=== PATIENT | male | born 1980 | race Caucasian/White ===

== ENCOUNTER 2017-06-04 09:54 | Observation (INO) | payer BC ==
[2017-06-04] MEDS ORDERED: Sodium Chloride 0.9% 10 ML Syringe FLUSH PRN (10:11)
[2017-06-04] MEDS ORDERED: Sodium Chloride 0.9% 1,000 ML IV ONE (10:11)
[2017-06-04] MEDS ORDERED: Ketorolac 15 MG/ML SDV IVPUSH ONE (10:11)
[2017-06-04] MEDS ORDERED: Morphine 4 MG/ML Syringe IVPUSH ONE (10:11)
[2017-06-04] MEDS ORDERED: Morphine 4 MG/ML Syringe IV ONE (11:00)
[2017-06-04 11:11] LABS: CHLORIDE,CL 103 mmol/L (98-107); SODIUM,NA 141 mmol/L (136-145)
--- NOTE | 2017-06-04 11:12 | EDM.PDOC ---
ED HPI GENERAL MEDICAL PROBLEM - General Chief Complaint: Syncope Stated Complaint: FALL Time Seen by Provider: 06/04/17 10:06 Source of Information: Reports: Patient History Limitations: Reports: No Limitations - History of Present Illness INITIAL COMMENTS - FREE TEXT/NARRATIVE: Patient reports falling after sitting on the toilet for several minutes. He did hit his head and shoulder. He has a large hematoma on his head and has left shoulder pain. He denies any recent illnesses. He does think he lost consciousness for a short period of time. He also has a history of seizures for which he takes Keppra. Sees neurology, but does not see a primary doctor. No smoking, drinking, or drug use. He denies chest pain, SOB, headache, nausea , vomiting, blood in urine or stool. No incontinence or constipation. Onset: Today, Sudden Location: Reports: Head, Upper Extremity, Left Quality: Reports: Ache Severity: Moderate Left Shoulder Pain Score (Numeric/FACES): 4 - Related Data Allergies Allergy/AdvReac Type Severity Reaction Status Date / Time No Known Allergies Allergy Verified 06/04/17 14:17 Home Meds: Home Meds levETIRAcetam [Levetiracetam] 1,500 mg PO BID 06/04/17 [History] Past Medical History HEENT History: Reports: Impaired Vision Cardiovascular History: Reports: None Neurological History: Reports: Seizure - Infectious Disease History Infectious Disease History: Reports: Chicken Pox - Past Surgical History HEENT Surgical History: Reports: Oral Surgery Other HEENT Surgeries/Procedures: [place] teeth removed Cardiovascular Surgical History: Reports: None Neurological Surgical History: Reports: None Social & Family History - Family History Family Medical History: Noncontributory - Tobacco Use Smoking Status *Q: Never Smoker Second Hand Smoke Exposure: No - Caffeine Use Caffeine Use: Reports: None - Recreational Drug Use Recreational Drug Use: No ED ROS GENERAL - Review of Systems Review Of Systems: See Below Constitutional: Reports: No Symptoms HEENT: Reports: No Symptoms Respiratory: Reports: No Symptoms Cardiovascular: Reports: No Symptoms Endocrine: Reports: No Symptoms GI/Abdominal: Reports: No Symptoms : Reports: No Symptoms Musculoskeletal: Reports: Shoulder Pain (left) Skin: Reports: No Symptoms Neurological: Reports: Syncope Psychiatric: Reports: No Symptoms Hematologic/Lymphatic: Reports: No Symptoms Immunologic: Reports: No Symptoms - Physical Exam Exam: See Below Exam Limited By: No Limitations General Appearance: Alert, WD/WN, No Apparent Distress Eye Exam: Bilateral Eye: EOMI, Normal Inspection, PERRL Ears: Normal TMs Head Exam: Scalp Ecchymosis, Scalp Hematoma Neck: Normal Inspection, Supple, Non-Tender, Full Range of Motion Respiratory/Chest: No Respiratory Distress, Lungs Clear, Normal Breath Sounds, No Accessory Muscle Use, Chest Non-Tender Cardiovascular: Normal Peripheral Pulses, Regular Rate, Rhythm, No Edema, No Gallop, No JVD, No Murmur, No Rub GI/Abdominal: Normal Bowel Sounds, Soft, Non-Tender, No Organomegaly, No Distention, No Abnormal Bruit, No Mass Neuro Exam (Abbreviated): Alert, Oriented, CN II-XII Intact, Normal Cognition, Normal Gait, Normal Reflexes, No Motor/Sensory Deficits Extremities: Limited Range of Motion (left shoulder does have limited ROM, pain , swelling to anterior shoulder) Psychiatric: Normal Affect, Normal Mood Skin Exam: Warm, Dry, Intact, Normal Color, No Rash ED PROCEDURES - Joint Reduction Site: Shoulder (L) Sedation: Other Pre-procedure NV status: Normal Post-procedure NV status: Normal Technique: Traction/Counter Traction Number of Attempts: 2 Post-Reduction Imaging: Completely Reduced Joint Reduction Complications: No EKG INTERPRETATION EKG Date: 06/04/17 Time: 11:42 Rhythm: Other (sinus tach, rate 102) [place]: Normal P-Wave: Present QRS: Normal ST-T: Normal QT: Normal Comparison: NA - No Prior EKG EKG Interpretation Comments: sinus tachycardia non specific T-wave abnormality Course - Orders/Labs/Meds Orders: Active Orders 24 hr Category Date Time Status Patient Status [ADT] Routine ADT 06/04/17 12:49 Active EKG Documentation Completion [RC] ROUTINE Care 06/04/17 10:12 Active Chest 2V [CR] Stat Exams 06/04/17 10:12 Taken Head wo Cont [CT] Stat Exams 06/04/17 10:07 Taken Shoulder Comp Lt [CR] Stat Exams 06/04/17 10:07 Taken CULTURE BLOOD [BC] Stat Lab 06/04/17 12:13 Results CULTURE BLOOD [BC] Stat Lab 06/04/17 12:26 Results URINALYSIS W/MICROSCOPIC [UA W/MICROSCOPIC] [URIN] Stat Lab 06/04/17 11:01 Ordered Sodium Chloride 0.9% [Saline Flush] Med 06/04/17 10:11 Active 10 ml FLUSH ASDIRECTED PRN Blood Culture x2 Reflex Set [OM.PC] Stat Oth 06/04/17 11:48 Ordered Saline Lock Insert [OM.PC] Routine Oth 06/04/17 10:11 Ordered Medication Orders Sodium Chloride (Normal Saline) 500 mls @ 100 mls/hr IV ASDIRECTED SCOTT Sodium Chloride (Normal Saline) 1,000 mls @ 100 mls/hr IV ASDIRECTED SCOTT Last Admin: 06/04/17 13:25 Dose: 100 mls/hr Sodium Chloride (Saline Flush) 10 ml FLUSH ASDIRECTED PRN PRN Reason: Keep Vein Open Labs: Laboratory Tests 06/04/17 06/04/17 06/04/17 Range/Units 10:40 10:40 10:40 WBC 28.7 H* (4.0-10.0) x10^3/uL RBC 4.71 (4.5-6.0) x10^6/uL Hgb 15.1 (14.0-18.0) g/dL Hct 42.5 (40.0-52.0) % MCV 90.2 (78.0-93.0) fL MCH 32.1 H (26.0-32.0) pg MCHC 35.5 (32.0-36.0) g/dL RDW Coeff of Curry 12.1 (10.0-15.0) % Plt Count 296 (130-400) x10^3/uL Add Manual Diff Yes Neutrophils % (Manual) 88 H (50-80) % Band Neutrophils % 3 (0-6) % Lymphocytes % (Manual) 4 L (25-50) % Monocytes % (Manual) 5 (2-11) % Platelet Estimate Adequate PT 10.4 (9.8-11.8) SEC INR 1.0 L (2.0-3.5) Sodium 141 (136-145) mmol/L Potassium 3.2 L (3.5-5.1) mmol/L Chloride 103 (98-107) mmol/L Carbon Dioxide 24 (21-32) mmol/L Anion Gap 17.2 BUN 13 (7-18) mg/dL Creatinine 1.3 (0.70-1.30) mg/dL Est Cr Clr Drug Dosing TNP Estimated GFR (MDRD) > 60 Glucose 124 H (74-106) mg/dL Lactic Acid (0.4-2.0) mmol/L Calcium 8.7 (8.5-10.1) mg/dL Corrected Calcium 8.46 L (8.5-10.1) mg/dL Total Bilirubin 0.3 (0.2-1.0) mg/dL AST 18 (15-37) U/L ALT 25 (16-63) U/L Alkaline Phosphatase 67 (46-116) U/L Creatine Kinase (39-308) U/L Troponin I < 0.017 (<=0.056) ng/mL C-Reactive Protein < 0.2 (<=0.9) mg/dL Total Protein 7.5 (6.4-8.2) g/dL Albumin 4.3 (3.4-5.0) g/dL Globulin 3.2 Albumin/Globulin Ratio 1.34 06/04/17 06/04/17 Range/Units 10:40 10:40 WBC (4.0-10.0) x10^3/uL RBC (4.5-6.0) x10^6/uL Hgb (14.0-18.0) g/dL Hct (40.0-52.0) % MCV (78.0-93.0) fL MCH (26.0-32.0) pg MCHC (32.0-36.0) g/dL RDW Coeff of Curry (10.0-15.0) % Plt Count (130-400) x10^3/uL Add Manual Diff Neutrophils % (Manual) (50-80) % Band Neutrophils % (0-6) % Lymphocytes % (Manual) (25-50) % Monocytes % (Manual) (2-11) % Platelet Estimate PT (9.8-11.8) SEC INR (2.0-3.5) Sodium (136-145) mmol/L Potassium (3.5-5.1) mmol/L Chloride (98-107) mmol/L Carbon Dioxide (21-32) mmol/L Anion Gap BUN (7-18) mg/dL Creatinine (0.70-1.30) mg/dL Est Cr Clr Drug Dosing Estimated GFR (MDRD) Glucose (74-106) mg/dL Lactic Acid 3.7 H* (0.4-2.0) mmol/L Calcium (8.5-10.1) mg/dL Corrected Calcium (8.5-10.1) mg/dL Total Bilirubin (0.2-1.0) mg/dL AST (15-37) U/L ALT (16-63) U/L Alkaline Phosphatase (46-116) U/L Creatine Kinase 377 H* (39-308) U/L Troponin I (<=0.056) ng/mL C-Reactive Protein (<=0.9) mg/dL Total Protein (6.4-8.2) g/dL Albumin (3.4-5.0) g/dL Globulin Albumin/Globulin Ratio Meds: Medications Generic Name Dose Route Start Last Admin Trade Name Freq PRN Reason Stop Dose Admin Sodium Chloride 500 mls @ 100 mls/hr 06/04/17 13:15 Normal Saline IV ASDIRECTED SCOTT Sodium Chloride 1,000 mls @ 100 mls/hr 06/04/17 13:30 06/04/17 13:25 Normal Saline IV 100 mls/hr ASDIRECTED SCOTT Administration Sodium Chloride 10 ml 06/04/17 10:11 Saline Flush FLUSH ASDIRECTED PRN Keep Vein Open Discontinued Medications Generic Name Dose Route Start Last Admin Trade Name Freq PRN Reason Stop Dose Admin Azithromycin Confirm 06/04/17 13:33 Zithromax Administered 06/04/17 13:34 Dose 500 mg .ROUTE .STK-MED ONE Ceftriaxone Sodium 2 gm 06/04/17 11:46 06/04/17 13:05 Rocephin IVPUSH 06/04/17 11:47 2 gm ONETIME ONE Administration Cyclobenzaprine HCl 10 mg 06/04/17 11:25 06/04/17 13:10 Flexeril PO 06/04/17 11:26 10 mg ONETIME ONE Administration Hydromorphone HCl 1 mg 06/04/17 12:49 06/04/17 13:12 Dilaudid IVPUSH 06/04/17 12:50 1 mg ONETIME ONE Administration Hydromorphone HCl 1 mg 06/04/17 14:04 06/04/17 14:21 Dilaudid IVPUSH 06/04/17 14:05 1 mg ONETIME ONE Administration Sodium Chloride 1,000 mls @ 999 mls/hr 06/04/17 10:11 06/04/17 10:40 Normal Saline IV 06/04/17 11:11 999 mls/hr ONETIME ONE Administration Azithromycin 500 mg/ Sodium 250 mls @ 250 mls/hr 06/04/17 11:46 Chloride IV 06/04/17 12:45 ONETIME ONE Azithromycin 500 mg/ Sodium 250 mls @ 250 mls/hr 06/04/17 13:24 Chloride IV 06/04/17 14:23 ONETIME ONE Ketorolac Tromethamine 15 mg 06/04/17 10:11 06/04/17 11:26 Toradol IVPUSH 06/04/17 10:12 15 mg ONETIME ONE Administration Lorazepam 0.5 mg 06/04/17 12:50 06/04/17 13:15 Ativan IVPUSH 06/04/17 12:51 0.5 mg ONETIME ONE Administration Morphine Sulfate 4 mg 06/04/17 10:11 06/04/17 10:45 Morphine IVPUSH 06/04/17 10:12 4 mg ONETIME ONE Administration Morphine Sulfate 4 mg 06/04/17 11:00 06/04/17 11:25 Morphine IV 06/04/17 11:01 Not Given ONETIME ONE - Re-Assessments/Exams Free Text/Narrative Re-Assessment/Exam: 06/04/17 12:59 CT head shows no acute bleeding, Chest x-ray normal, should x-ray shows anterior glenerohumeral head dislocation, no fractures. Departure - Departure Time of Disposition: 15:03 Disposition: Refer to Observation Condition: Good Clinical Impression: Dehydration Leukocytosis, unspecified Qualifiers: Leukocytosis type: unspecified Qualified Code(s): D72.829 - Elevated white blood cell count, unspecified - Discharge Information ED Communication - Discussed Case With (1) Discussed Case With (1): Other (Dr. Reyez consulted and she recommended observation admission.) - Problem List & Annotations (1) Dehydration SNOMED Code(s): 45740283 Code(s): E86.0 - DEHYDRATION Status: Acute Priority: Medium Current Visit: Yes Onset Date: ~01/15/17 Annotation/Comment:: 1. hydration 2. repeat metabolic panel in am 3. repeat lactic acid (2) Leukocytosis, unspecified SNOMED Code(s): 195800068, 126427587 Code(s): D72.829 - ELEVATED WHITE BLOOD CELL COUNT, UNSPECIFIED Status: Acute Priority: Medium Current Visit: Yes Onset Date: 06/04/17 Annotation/Comment:: Repeat lactic acid in 6 hours Repeat CBC in AM Urinalysis to determine any urinary causes rocephin and azithromycin for antibiotics Qualifiers: Leukocytosis type: unspecified Qualified Code(s): D72.829 - Elevated white blood cell count, unspecified - Problem List Review Problem List Initiated/Reviewed/Updated: Yes - My Orders Last 24 Hours: My Active Orders 06/04/17 10:07 Head wo Cont [CT] Stat Shoulder Comp Lt [CR] Stat 06/04/17 10:11 Sodium Chloride 0.9% [Saline Flush] 10 ml FLUSH ASDIRECTED PRN Saline Lock Insert [OM.PC] Routine 06/04/17 10:12 EKG Documentation Completion [RC] ROUTINE Chest 2V [CR] Stat 06/04/17 11:01 URINALYSIS W/MICROSCOPIC [UA W/MICROSCOPIC] [URIN] Stat 06/04/17 11:48 Blood Culture x2 Reflex Set [OM.PC] Stat 06/04/17 12:13 CULTURE BLOOD [BC] Stat 06/04/17 12:26 CULTURE BLOOD [BC] Stat 06/04/17 12:49 Patient Status [ADT] Routine - Assessment/Plan Last 24 Hours: My Active Orders 06/04/17 10:07 Head wo Cont [CT] Stat Shoulder Comp Lt [CR] Stat 06/04/17 10:11 Sodium Chloride 0.9% [Saline Flush] 10 ml FLUSH ASDIRECTED PRN Saline Lock Insert [OM.PC] Routine 06/04/17 10:12 EKG Documentation Completion [RC] ROUTINE Chest 2V [CR] Stat 06/04/17 11:01 URINALYSIS W/MICROSCOPIC [UA W/MICROSCOPIC] [URIN] Stat 06/04/17 11:48 Blood Culture x2 Reflex Set [OM.PC] Stat 06/04/17 12:13 CULTURE BLOOD [BC] Stat 06/04/17 12:26 CULTURE BLOOD [BC] Stat 06/04/17 12:49 Patient Status [ADT] Routine
[2017-06-04] MEDS ORDERED: Cyclobenzaprine 10 MG Tab PO ONE (11:25)
[2017-06-04] MEDS ORDERED: Azithromycin 500 MG in Sodium Chloride 0.9% 250 ML IV ONE ×3 (11:46→13:55)
[2017-06-04] MEDS ORDERED: cefTRIAXone 2 GM Vial IVPUSH ONE (11:46)
[2017-06-04] MEDS ORDERED: HYDROmorphone 1 MG/ML Syringe IVPUSH ONE ×2 (12:49→14:04)
[2017-06-04] MEDS ORDERED: LORazepam 2 MG/ML SDV IVPUSH ONE (12:50)
[2017-06-04] MEDS ORDERED: Sodium Chloride 0.9% 500 ML IV SCH (13:15)
[2017-06-04] MEDS ORDERED: Sodium Chloride 0.9% 1,000 ML IV SCH (13:30)
[2017-06-04] MEDS ORDERED: Azithromycin 500 MG Vial ONE (13:33)
[2017-06-04] MEDS ORDERED: Ondansetron 4 MG Tab.DIS PO PRN (17:40)
[2017-06-04] MEDS ORDERED: Ketorolac 15 MG/ML SDV IVPUSH PRN (17:40)
[2017-06-04] MEDS ORDERED: Acetaminophen/HYDROcodone 325-5 MG Tab PO PRN (17:40)
[2017-06-04] MEDS ORDERED: Lactated Ringers 1,000 ML IV SCH (21:15)
--- NOTE | 2017-06-04 21:22 | PCM.PN ---
- General Info Date of Service: 06/04/17 Admission Dx/Problem (Free Text): Pt. was admitted with a syncopal episode vs. seizure, dehydration, rhabdomyolysis, and leukocytosis earlier today by Farhat Santana. Pt. was on the toliet at the onset of these symptoms and it is possible that the pt. may have had a syncopal episode as well. Pt. did strike his head. CT of his brain was negative. Pt. also dislocated his shoulder anteriorly during the fall which was reduced. Pt. has been chilled several times during the day. His urine is negative for leukocytes and nitrates. His initial chest x-ray of his chest is negative as well. Pt. denies any rashes or cellulitis. He denies any headache, neck stiffness, N/V/D or abdominal pain. Functional Status: Reports: Pain Controlled - Review of Systems General: Reports: No Symptoms HEENT: Reports: Other (superficial head pain/scalp contusions) Pulmonary: Reports: No Symptoms Cardiovascular: Reports: No Symptoms Gastrointestinal: Reports: No Symptoms Genitourinary: Reports: No Symptoms Musculoskeletal: Reports: Shoulder Pain Skin: Reports: No Symptoms Neurological: Reports: No Symptoms, Seizure (See HPI), Syncope (see HPI). Denies: Confusion, Dizziness, Numbness, Trouble Speaking, Difficulty Walking, Weakness, Change in Speech, Gait Disturbance Psychiatric: Reports: No Symptoms - Patient Data Vitals - Most Recent: Last Vital Signs Temp 37.5 C 06/04/17 17:40 Pulse 111 H 06/04/17 17:40 Resp 16 06/04/17 17:40 BP 129/73 06/04/17 17:40 Pulse Ox 94 L 06/04/17 17:40 Weight - Most Recent: 94.529 kg I&O - Last 24 Hours: Intake & Output 06/04/17 06/04/17 06/04/17 06:59 14:59 22:59 Intake Total 1085 Balance 1085 Lab Results Last 24 Hours: Laboratory Results - last 24 hr 06/04/17 06/04/17 06/04/17 Range/Units 10:40 10:40 10:40 WBC 28.7 H* (4.0-10.0) x10^3/uL RBC 4.71 (4.5-6.0) x10^6/uL Hgb 15.1 (14.0-18.0) g/dL Hct 42.5 (40.0-52.0) % MCV 90.2 (78.0-93.0) fL MCH 32.1 H (26.0-32.0) pg MCHC 35.5 (32.0-36.0) g/dL RDW Coeff of Curry 12.1 (10.0-15.0) % Plt Count 296 (130-400) x10^3/uL Add Manual Diff Yes Neutrophils % (Manual) 88 H (50-80) % Band Neutrophils % 3 (0-6) % Lymphocytes % (Manual) 4 L (25-50) % Monocytes % (Manual) 5 (2-11) % Platelet Estimate Adequate PT 10.4 (9.8-11.8) SEC INR 1.0 L (2.0-3.5) Sodium 141 (136-145) mmol/L Potassium 3.2 L (3.5-5.1) mmol/L Chloride 103 (98-107) mmol/L Carbon Dioxide 24 (21-32) mmol/L Anion Gap 17.2 BUN 13 (7-18) mg/dL Creatinine 1.3 (0.70-1.30) mg/dL Est Cr Clr Drug Dosing TNP Estimated GFR (MDRD) > 60 Glucose 124 H (74-106) mg/dL Lactic Acid (0.4-2.0) mmol/L Calcium 8.7 (8.5-10.1) mg/dL Corrected Calcium 8.46 L (8.5-10.1) mg/dL Total Bilirubin 0.3 (0.2-1.0) mg/dL AST 18 (15-37) U/L ALT 25 (16-63) U/L Alkaline Phosphatase 67 (46-116) U/L Creatine Kinase (39-308) U/L Troponin I < 0.017 (<=0.056) ng/mL C-Reactive Protein < 0.2 (<=0.9) mg/dL Total Protein 7.5 (6.4-8.2) g/dL Albumin 4.3 (3.4-5.0) g/dL Globulin 3.2 Albumin/Globulin Ratio 1.34 Urine Color (YELLOW) Urine Appearance (CLEAR) Urine pH (5.0-8.0) Ur Specific [place] Urine Protein (NEGATIVE) mg/dL Urine Glucose (UA) (NEGATIVE) mg/dL Urine Ketones (NEGATIVE) mg/dL Urine Occult Blood (NEGATIVE) Urine Nitrite (NEGATIVE) Urine Bilirubin (NEGATIVE) Urine Urobilinogen (0.2) EU/dL Ur Leukocyte Esterase (NEGATIVE) Urine RBC (NOT SEEN) /HPF Urine WBC (NOT SEEN) /HPF Ur Squamous Epith Cells (NEGATIVE) /HPF Uric Acid Crystals (NEGATIVE) /HPF Amorphous Sediment Urine Bacteria (NEGATIVE) /HPF Urine Mucus (NEGATIVE) /LPF 06/04/17 06/04/17 06/04/17 Range/Units 10:40 10:40 18:00 WBC (4.0-10.0) x10^3/uL RBC (4.5-6.0) x10^6/uL Hgb (14.0-18.0) g/dL Hct (40.0-52.0) % MCV (78.0-93.0) fL MCH (26.0-32.0) pg MCHC (32.0-36.0) g/dL RDW Coeff of Curry (10.0-15.0) % Plt Count (130-400) x10^3/uL Add Manual Diff Neutrophils % (Manual) (50-80) % Band Neutrophils % (0-6) % Lymphocytes % (Manual) (25-50) % Monocytes % (Manual) (2-11) % Platelet Estimate PT (9.8-11.8) SEC INR (2.0-3.5) Sodium (136-145) mmol/L Potassium (3.5-5.1) mmol/L Chloride (98-107) mmol/L Carbon Dioxide (21-32) mmol/L Anion Gap BUN (7-18) mg/dL Creatinine (0.70-1.30) mg/dL Est Cr Clr Drug Dosing Estimated GFR (MDRD) Glucose (74-106) mg/dL Lactic Acid 3.7 H* (0.4-2.0) mmol/L Calcium (8.5-10.1) mg/dL Corrected Calcium (8.5-10.1) mg/dL Total Bilirubin (0.2-1.0) mg/dL AST (15-37) U/L ALT (16-63) U/L Alkaline Phosphatase (46-116) U/L Creatine Kinase 377 H* (39-308) U/L Troponin I (<=0.056) ng/mL C-Reactive Protein (<=0.9) mg/dL Total Protein (6.4-8.2) g/dL Albumin (3.4-5.0) g/dL Globulin Albumin/Globulin Ratio Urine Color Yellow (YELLOW) Urine Appearance Slightly cloudy H (CLEAR) Urine pH 5.5 (5.0-8.0) Ur Specific [place] >=1.030 Urine Protein Trace H (NEGATIVE) mg/dL Urine Glucose (UA) Negative (NEGATIVE) mg/dL Urine Ketones Trace H (NEGATIVE) mg/dL Urine Occult Blood Negative (NEGATIVE) Urine Nitrite Negative (NEGATIVE) Urine Bilirubin Negative (NEGATIVE) Urine Urobilinogen 0.2 (0.2) EU/dL Ur Leukocyte Esterase Negative (NEGATIVE) Urine RBC 0-5 (NOT SEEN) /HPF Urine WBC 0-5 (NOT SEEN) /HPF Ur Squamous Epith Cells Few H (NEGATIVE) /HPF Uric Acid Crystals Moderate H (NEGATIVE) /HPF Amorphous Sediment Few Urine Bacteria Moderate H (NEGATIVE) /HPF Urine Mucus Moderate H (NEGATIVE) /LPF [place] Results Last 24 Hours: Microbiology 06/04/17 12:26 Anaerobic Blood Culture - Final Blood - Venous - Lab Draw 06/04/17 12:13 Anaerobic Blood Culture - Final Blood - Venous Med Orders - Current: Current Medications Hydrocodone Bitart/Acetaminophen ([place] 325-5 Mg) 1 tab PO Q4H PRN PRN Reason: Pain (moderate 4-6) Lactated Ringer's (Ringers, Lactated) 1,000 mls @ 500 mls/hr IV ASDIRECTED SCOTT Lactated Ringer's (Ringers, Lactated) 1,000 mls @ 200 mls/hr IV ASDIRECTED SCOTT Ketorolac Tromethamine (Toradol) 15 mg IVPUSH Q6H PRN PRN Reason: Pain (moderate 4-6) Ondansetron HCl (Zofran Odt) 4 mg PO Q4H PRN PRN Reason: nausea, able to take PO Sodium Chloride (Saline Flush) 10 ml FLUSH ASDIRECTED PRN PRN Reason: Keep Vein Open Discontinued Medications Azithromycin (Zithromax) Confirm Administered Dose 500 mg .ROUTE .STK-MED ONE Stop: 06/04/17 13:34 Last Admin: 06/04/17 17:46 Dose: Not Given Ceftriaxone Sodium (Rocephin) 2 gm IVPUSH ONETIME ONE Stop: 06/04/17 11:47 Last Admin: 06/04/17 13:05 Dose: 2 gm Cyclobenzaprine HCl (Flexeril) 10 mg PO ONETIME ONE Stop: 06/04/17 11:26 Last Admin: 06/04/17 13:10 Dose: 10 mg Hydromorphone HCl (Dilaudid) 1 mg IVPUSH ONETIME ONE Stop: 06/04/17 12:50 Last Admin: 06/04/17 13:12 Dose: 1 mg Hydromorphone HCl (Dilaudid) 1 mg IVPUSH ONETIME ONE Stop: 06/04/17 14:05 Last Admin: 06/04/17 14:21 Dose: 1 mg Sodium Chloride (Normal Saline) 1,000 mls @ 999 mls/hr IV ONETIME ONE Stop: 06/04/17 11:11 Last Admin: 06/04/17 10:40 Dose: 999 mls/hr Azithromycin 500 mg/ Sodium (Chloride) 250 mls @ 250 mls/hr IV ONETIME ONE Stop: 06/04/17 12:45 Last Admin: 06/04/17 17:47 Dose: Not Given Sodium Chloride (Normal Saline) 1,000 mls @ 100 mls/hr IV ASDIRECTED [facility] Last Admin: 06/04/17 13:25 Dose: 100 mls/hr Azithromycin 500 mg/ Sodium (Chloride) 250 mls @ 250 mls/hr IV ONETIME ONE Stop: 06/04/17 14:54 Last Admin: 06/04/17 13:55 Dose: 250 mls/hr Ketorolac Tromethamine (Toradol) 15 mg IVPUSH ONETIME ONE Stop: 06/04/17 10:12 Last Admin: 06/04/17 11:26 Dose: 15 mg Lorazepam (Ativan) 0.5 mg IVPUSH ONETIME ONE Stop: 06/04/17 12:51 Last Admin: 06/04/17 13:15 Dose: 0.5 mg Morphine Sulfate (Morphine) 4 mg IVPUSH ONETIME ONE Stop: 06/04/17 10:12 Last Admin: 06/04/17 10:45 Dose: 4 mg Morphine Sulfate (Morphine) 4 mg IV ONETIME ONE Stop: 06/04/17 11:01 Last Admin: 06/04/17 11:25 Dose: Not Given - Exam General: Alert, Oriented HEENT: Pupils Equal, Pupils Reactive, EOMI, Other (mouth is somewhat dry) Neck: Supple Lungs: Clear to Auscultation, Normal Respiratory Effort, Decreased Breath Sounds Cardiovascular: Regular Rate, Regular Rhythm GI/Abdominal Exam: Normal Bowel Sounds, Soft, Non-Tender, No Organomegaly, No Distention, No Abnormal Bruit, No Mass, Pelvis Stable (Male) Exam: Deferred Back Exam: Normal Inspection, Full Range of Motion Extremities: Normal Range of Motion, Non-Tender, No Pedal Edema, Normal Capillary Refill Peripheral Pulses: 4+: Radial (L), Radial (R) Skin: Warm, Dry, Intact Wound/Incisions: Healing Well Neurological: No New Focal Deficit Psy/Mental Status: Alert, Normal Affect, Normal Mood - Problem List Review Problem List Initiated/Reviewed/Updated: Yes - My Orders Last 24 Hours: My Active Orders 06/04/17 20:51 LACTIC ACID [CHEM] Stat TROPONIN I [CHEM] Stat 06/04/17 21:15 Lactated Ringers [Ringers, Lactated] 1,000 ml IV ASDIRECTED Lactated Ringers [Ringers, Lactated] 1,000 ml IV ASDIRECTED - Assessment Assessment:: Syncope vs. seizure Dehydration Fall with closed head injury and L shoulder dislocation Elevated lactic acid and leukocytosis Rhabdomyolysis - Plan Plan:: will repeat his troponin and lactic acid now. We will tread these in the morning and will add chemisty and repeat CBC as well. Will also repeat his CXR in the morning as well. He is dehydrated and in rhadomyolysis. Will give him a liter of LR over 2 hours , then increase his rate to 200ml an hour from 100ml/hr. I will also change him to LR from normal saline. Discharge will be based on laboratory finding in the morning. Pt. will need to establish with a PCP and will need hospital follow-up, particularly since he dislocated his shoulder. He should see his neurologist as well.
[2017-06-04] MEDS: levETIRAcetam 500 MG Tab PO SCH (22:36)
[2017-06-04] MEDS: Lactated Ringers 1,000 ML IV SCH (23:40)
[2017-06-05] MEDS: Lactated Ringers 1,000 ML IV SCH (04:44)
[2017-06-05 08:11] LABS: CHLORIDE,CL 105 mmol/L (98-107); SODIUM,NA 137 mmol/L (136-145)
[2017-06-05] MEDS: levETIRAcetam 500 MG Tab PO SCH ×2 (08:12→21:27)
[2017-06-05] MEDS ORDERED: Sodium Chloride 0.9% 1,000 ML IV ONE (11:04)
[2017-06-05] MEDS ORDERED: cefTRIAXone 2 GM Vial IVPUSH SCH (12:00)
[2017-06-05] MEDS ORDERED: Azithromycin 500 MG in Sodium Chloride 0.9% 250 ML IV SCH (12:00)
--- NOTE | 2017-06-05 12:14 | PCM.PN ---
- General Info Date of Service: 06/05/17 Subjective Update: Pt. is feeling better today. He was hydrated with lactated ringers overnight. He states that he is feeling much improved. His chest x-ray was repeated this morning which did show some linear atelectasis which was not present yesterday. Functional Status: Reports: Pain Controlled - Review of Systems General: Reports: No Symptoms HEENT: Reports: No Symptoms Pulmonary: Reports: No Symptoms Cardiovascular: Reports: No Symptoms Gastrointestinal: Reports: No Symptoms. Denies: Abdominal Pain, Diarrhea, Nausea Genitourinary: Reports: No Symptoms Musculoskeletal: Reports: No Symptoms Skin: Reports: No Symptoms Neurological: Reports: No Symptoms. Denies: Paresthesia, Seizure, Trouble Speaking, Difficulty Walking, Change in Speech, Gait Disturbance Psychiatric: Reports: No Symptoms - Patient Data Vitals - Most Recent: Last Vital Signs Temp 37.2 C 06/05/17 10:00 Pulse 110 H 06/05/17 10:00 Resp 16 06/05/17 10:00 BP 145/79 H 06/05/17 10:00 Pulse Ox 97 06/05/17 10:00 Weight - Most Recent: 94.529 kg I&O - Last 24 Hours: Intake & Output 06/04/17 06/05/17 06/05/17 22:59 06:59 14:59 Intake Total 1085 4445 1050 Output Total 950 1075 Balance 1085 3495 -25 Lab Results Last 24 Hours: Laboratory Results - last 24 hr 06/04/17 06/04/17 06/04/17 Range/Units 10:40 10:40 18:00 WBC (4.0-10.0) x10^3/uL RBC (4.5-6.0) x10^6/uL Hgb (14.0-18.0) g/dL Hct (40.0-52.0) % MCV (78.0-93.0) fL MCH (26.0-32.0) pg MCHC (32.0-36.0) g/dL RDW Coeff of [place] (10.0-15.0) % Plt Count (130-400) x10^3/uL Neut % (Auto) (50.0-80.0) % Lymph % (Auto) (25.0-50.0) % [place] % (Auto) (2.0-11.0) % Eos % (Auto) (0.0-4.0) % Baso % (Auto) (0.2-1.2) % Sodium (136-145) mmol/L Potassium (3.5-5.1) mmol/L Chloride (98-107) mmol/L Carbon Dioxide (21-32) mmol/L Anion Gap (10-20) mmol/L BUN (7-18) mg/dL Creatinine (0.70-1.30) mg/dL Est Cr Clr Drug Dosing mL/min Estimated GFR (MDRD) Glucose (74-106) mg/dL Lactic Acid 3.7 H* (0.4-2.0) mmol/L Calcium (8.5-10.1) mg/dL Creatine Kinase 377 H* (39-308) U/L Troponin I (<=0.056) ng/mL C-Reactive Protein (<=0.9) mg/dL Urine Color Yellow (YELLOW) Urine Appearance Slightly cloudy H (CLEAR) Urine pH 5.5 (5.0-8.0) Ur Specific [place] >=1.030 Urine Protein Trace H (NEGATIVE) mg/dL Urine Glucose (UA) Negative (NEGATIVE) mg/dL Urine Ketones Trace H (NEGATIVE) mg/dL Urine Occult Blood Negative (NEGATIVE) Urine Nitrite Negative (NEGATIVE) Urine Bilirubin Negative (NEGATIVE) Urine Urobilinogen 0.2 (0.2) EU/dL Ur Leukocyte Esterase Negative (NEGATIVE) Urine RBC 0-5 (NOT SEEN) /HPF Urine WBC 0-5 (NOT SEEN) /HPF Ur Squamous Epith Cells Few H (NEGATIVE) /HPF Uric Acid Crystals Moderate H (NEGATIVE) /HPF Amorphous Sediment Few Urine Bacteria Moderate H (NEGATIVE) /HPF Urine Mucus Moderate H (NEGATIVE) /LPF 06/04/17 06/04/17 06/05/17 Range/Units 21:10 21:10 07:05 WBC 10.8 H (4.0-10.0) x10^3/uL RBC 3.74 L (4.5-6.0) x10^6/uL Hgb 11.9 L D (14.0-18.0) g/dL Hct 34.7 L (40.0-52.0) % MCV 92.8 (78.0-93.0) fL MCH 31.8 (26.0-32.0) pg MCHC 34.3 (32.0-36.0) g/dL RDW Coeff of [place] 12.2 (10.0-15.0) % Plt Count 202 D (130-400) x10^3/uL Neut % (Auto) 73.4 (50.0-80.0) % Lymph % (Auto) 18.4 L (25.0-50.0) % [place] % (Auto) 7.4 (2.0-11.0) % Eos % (Auto) 0.5 (0.0-4.0) % Baso % (Auto) 0.3 (0.2-1.2) % Sodium (136-145) mmol/L Potassium (3.5-5.1) mmol/L Chloride (98-107) mmol/L Carbon Dioxide (21-32) mmol/L Anion Gap (10-20) mmol/L BUN (7-18) mg/dL Creatinine (0.70-1.30) mg/dL Est Cr Clr Drug Dosing mL/min Estimated GFR (MDRD) Glucose (74-106) mg/dL Lactic Acid 2.1 H* (0.4-2.0) mmol/L Calcium (8.5-10.1) mg/dL Creatine Kinase (39-308) U/L Troponin I < 0.017 (<=0.056) ng/mL C-Reactive Protein (<=0.9) mg/dL Urine Color (YELLOW) Urine Appearance (CLEAR) Urine pH (5.0-8.0) Ur Specific [place] Urine Protein (NEGATIVE) mg/dL Urine Glucose (UA) (NEGATIVE) mg/dL Urine Ketones (NEGATIVE) mg/dL Urine Occult Blood (NEGATIVE) Urine Nitrite (NEGATIVE) Urine Bilirubin (NEGATIVE) Urine Urobilinogen (0.2) EU/dL Ur Leukocyte Esterase (NEGATIVE) Urine RBC (NOT SEEN) /HPF Urine WBC (NOT SEEN) /HPF Ur Squamous Epith Cells (NEGATIVE) /HPF Uric Acid Crystals (NEGATIVE) /HPF Amorphous Sediment Urine Bacteria (NEGATIVE) /HPF Urine Mucus (NEGATIVE) /LPF 06/05/17 06/05/17 Range/Units 07:05 07:05 WBC (4.0-10.0) x10^3/uL RBC (4.5-6.0) x10^6/uL Hgb (14.0-18.0) g/dL Hct (40.0-52.0) % MCV (78.0-93.0) fL MCH (26.0-32.0) pg MCHC (32.0-36.0) g/dL RDW Coeff of [place] (10.0-15.0) % Plt Count (130-400) x10^3/uL Neut % (Auto) (50.0-80.0) % Lymph % (Auto) (25.0-50.0) % [place] % (Auto) (2.0-11.0) % Eos % (Auto) (0.0-4.0) % Baso % (Auto) (0.2-1.2) % Sodium 137 (136-145) mmol/L Potassium 3.8 (3.5-5.1) mmol/L Chloride 105 (98-107) mmol/L Carbon Dioxide 25 (21-32) mmol/L Anion Gap 10.8 (10-20) mmol/L BUN 9 (7-18) mg/dL Creatinine 1.1 (0.70-1.30) mg/dL Est Cr Clr Drug Dosing 97.93 mL/min Estimated GFR (MDRD) > 60 Glucose 107 H (74-106) mg/dL Lactic Acid 1.9 (0.4-2.0) mmol/L Calcium 7.9 L (8.5-10.1) mg/dL Creatine Kinase 1628 H* (39-308) U/L Troponin I (<=0.056) ng/mL C-Reactive Protein 4.9 H (<=0.9) mg/dL Urine Color (YELLOW) Urine Appearance (CLEAR) Urine pH (5.0-8.0) Ur Specific [place] Urine Protein (NEGATIVE) mg/dL Urine Glucose (UA) (NEGATIVE) mg/dL Urine Ketones (NEGATIVE) mg/dL Urine Occult Blood (NEGATIVE) Urine Nitrite (NEGATIVE) Urine Bilirubin (NEGATIVE) Urine Urobilinogen (0.2) EU/dL Ur Leukocyte Esterase (NEGATIVE) Urine RBC (NOT SEEN) /HPF Urine WBC (NOT SEEN) /HPF Ur Squamous Epith Cells (NEGATIVE) /HPF Uric Acid Crystals (NEGATIVE) /HPF Amorphous Sediment Urine Bacteria (NEGATIVE) /HPF Urine Mucus (NEGATIVE) /LPF [place] Results Last 24 Hours: Microbiology 06/04/17 12:26 Anaerobic Blood Culture - Final Blood - Venous - Lab Draw 06/04/17 12:13 Anaerobic Blood Culture - Final Blood - Venous Med Orders - Current: Current Medications Hydrocodone Bitart/Acetaminophen ([place] 325-5 Mg) 1 tab PO Q4H PRN PRN Reason: Pain (moderate 4-6) Ceftriaxone Sodium (Rocephin) 2 gm IVPUSH DAILY@1200 SCOTT Last Admin: 06/05/17 11:48 Dose: 2 gm Azithromycin 500 mg/ Sodium (Chloride) 250 mls @ 250 mls/hr IV DAILY@1200 SCOTT Last Admin: 06/05/17 11:48 Dose: 250 mls/hr Sodium Chloride (Normal Saline) 1,000 mls @ 125 mls/hr IV .BOLUS ONE Stop: 06/05/17 19:03 Last Admin: 06/05/17 11:17 Dose: 125 mls/hr Ketorolac Tromethamine (Toradol) 15 mg IVPUSH Q6H PRN PRN Reason: Pain (moderate 4-6) Levetiracetam (Keppra) 1,500 mg PO BID SCOTT Last Admin: 06/05/17 08:12 Dose: 1,500 mg Ondansetron HCl (Zofran Odt) 4 mg PO Q4H PRN PRN Reason: nausea, able to take PO Sodium Chloride (Saline Flush) 10 ml FLUSH ASDIRECTED PRN PRN Reason: Keep Vein Open Discontinued Medications Azithromycin (Zithromax) Confirm Administered Dose 500 mg .ROUTE .STK-MED ONE Stop: 06/04/17 13:34 Last Admin: 06/04/17 17:46 Dose: Not Given Ceftriaxone Sodium (Rocephin) 2 gm IVPUSH ONETIME ONE Stop: 06/04/17 11:47 Last Admin: 06/04/17 13:05 Dose: 2 gm Cyclobenzaprine HCl (Flexeril) 10 mg PO ONETIME ONE Stop: 06/04/17 11:26 Last Admin: 06/04/17 13:10 Dose: 10 mg Hydromorphone HCl (Dilaudid) 1 mg IVPUSH ONETIME ONE Stop: 06/04/17 12:50 Last Admin: 06/04/17 13:12 Dose: 1 mg Hydromorphone HCl (Dilaudid) 1 mg IVPUSH ONETIME ONE Stop: 06/04/17 14:05 Last Admin: 06/04/17 14:21 Dose: 1 mg Sodium Chloride (Normal Saline) 1,000 mls @ 999 mls/hr IV ONETIME ONE Stop: 06/04/17 11:11 Last Admin: 06/04/17 10:40 Dose: 999 mls/hr Azithromycin 500 mg/ Sodium (Chloride) 250 mls @ 250 mls/hr IV ONETIME ONE Stop: 06/04/17 12:45 Last Admin: 06/04/17 17:47 Dose: Not Given Sodium Chloride (Normal Saline) 1,000 mls @ 100 mls/hr IV ASDIRECTED [facility] Last Admin: 06/04/17 13:25 Dose: 100 mls/hr Azithromycin 500 mg/ Sodium (Chloride) 250 mls @ 250 mls/hr IV ONETIME ONE Stop: 06/04/17 14:54 Last Admin: 06/04/17 13:55 Dose: 250 mls/hr Lactated Ringer's (Ringers, Lactated) 1,000 mls @ 500 mls/hr IV ASDIRECTED [facility] Last Admin: 06/04/17 21:38 Dose: 500 mls/hr Lactated Ringer's (Ringers, Lactated) 1,000 mls @ 200 mls/hr IV ASDIRECTED [facility] Last Admin: 06/05/17 04:44 Dose: 200 mls/hr Ketorolac Tromethamine (Toradol) 15 mg IVPUSH ONETIME ONE Stop: 06/04/17 10:12 Last Admin: 06/04/17 11:26 Dose: 15 mg Lorazepam (Ativan) 0.5 mg IVPUSH ONETIME ONE Stop: 06/04/17 12:51 Last Admin: 06/04/17 13:15 Dose: 0.5 mg Morphine Sulfate (Morphine) 4 mg IVPUSH ONETIME ONE Stop: 06/04/17 10:12 Last Admin: 06/04/17 10:45 Dose: 4 mg Morphine Sulfate (Morphine) 4 mg IV ONETIME ONE Stop: 06/04/17 11:01 Last Admin: 06/04/17 11:25 Dose: Not Given - Exam Quality Assessment: No: Supplemental Oxygen, Skin Breakdown General: Alert, Oriented HEENT: Pupils Equal, Pupils Reactive, EOMI, Mucous Membr. Moist/[place] Neck: Supple Lungs: Normal Respiratory Effort, Decreased Breath Sounds, Crackles Cardiovascular: Regular Rate, Regular Rhythm GI/Abdominal Exam: Normal Bowel Sounds, Soft, Non-Tender, No Organomegaly, No Distention, No Abnormal Bruit, No Mass, Pelvis Stable (Male) Exam: Deferred Back Exam: Normal Inspection, Full Range of Motion Extremities: Normal Inspection, Normal Range of Motion, Non-Tender, No Pedal Edema, Normal Capillary Refill Peripheral Pulses: 3+: Radial (L), Radial (R) Skin: Warm, Dry, Intact Neurological: No New Focal Deficit Psy/Mental Status: Alert, Normal Affect, Normal Mood - Problem List & Annotations (1) Dehydration SNOMED Code(s): 74770663 Code(s): E86.0 - DEHYDRATION Status: Acute Priority: Medium Current Visit: Yes Onset Date: ~01/15/17 Annotation/Comment:: 1. hydration 2. repeat metabolic panel in am 3. repeat lactic acid (2) Leukocytosis, unspecified SNOMED Code(s): 841017076, 631894922 Code(s): D72.829 - ELEVATED WHITE BLOOD CELL COUNT, UNSPECIFIED Status: Acute Priority: Medium Current Visit: Yes Onset Date: 06/04/17 Qualifiers: Leukocytosis type: unspecified Qualified Code(s): D72.829 - Elevated white blood cell count, unspecified Annotation/Comment:: Repeat lactic acid in 6 hours Repeat CBC in AM Urinalysis to determine any urinary causes rocephin and azithromycin for antibiotics - Problem List Review Problem List Initiated/Reviewed/Updated: Yes - My Orders Last 24 Hours: My Active Orders 06/04/17 22:15 levETIRAcetam [Keppra] 1,500 mg PO BID 06/05/17 05:11 Chest 2V [CR] AM 06/05/17 11:04 Sodium Chloride 0.9% [Normal Saline] 1,000 ml IV .BOLUS 06/05/17 12:00 Azithromycin [Zithromax] 500 mg Sodium Chloride 0.9% [Normal Saline] 250 ml IV DAILY@1200 cefTRIAXone [Rocephin] 2 gm IVPUSH DAILY@1200 06/05/17 17:08 CPK [CREATINE KINASE,CK] [CHEM] Routine - Assessment Assessment:: Syncope vs. seizure Dehydration Fall with closed head injury and L shoulder dislocation Elevated lactic acid and leukocytosis Rhabdomyolysis - Plan Plan:: Will repeat his CPK later this afternoon. If it is trending down, we will likely discharge him later today. Will continue his IV antibiotics. This is likely what is causing his leukocytosis. Based on his physical exam, this could indicate an early community acquired pneumonia.
[2017-06-05] MEDS: Sodium Chloride 0.9% 2,000 ML IV ONE ×2 (21:30→22:38)
[2017-06-05] MEDS ORDERED: Sodium Chloride 0.9% 1,000 ML IV SCH (23:45)
[2017-06-06 07:32] LABS: CHLORIDE,CL 105 mmol/L (98-107); SODIUM,NA 140 mmol/L (136-145)
[2017-06-06] MEDS: levETIRAcetam 500 MG Tab PO SCH (07:33)
[2017-06-06] MEDS ORDERED: Magnesium Sulfate/Water 2 GM in Premix Bag 1 BAG IV ONE (10:22)
[2017-06-06] MEDS ORDERED: Magnesium Oxide 400 MG Tab PO ONE (10:37)
--- NOTE | 2017-06-06 10:43 | PCM.DCSUM1 ---
Discharge Summary - Hospital Course HPI Initial Comments: Patient presented to the ED at [facility] 2 days ago after falling while sitting on the toilet for several minutes. He did hit his head and shoulder. He has a large hematoma on his head and has left shoulder pain. He denies any recent illnesses. He thinks he lost consciousness for a short period of time. He also has a history of seizures for which he takes Keppra. Sees neurology, but does not see a primary doctor. No smoking, drinking, or drug use. He denies chest pain, SOB, headache, nausea, vomiting, blood in urine or stool. No incontinence or constipation. Patient was last seen by Neurology on 05/14/2017. No changes were made at that time for his seizure history. - Discharge Data Discharge Date: 06/06/17 Discharge Disposition: Home, Self-Care 01 Condition: Good - Discharge Diagnosis/Problem(s) (1) Seizure disorder SNOMED Code(s): 949848416 ICD Code: G40.909 - EPILEPSY, UNSP, NOT INTRACTABLE, WITHOUT STATUS EPILEPTICUS Status: Chronic Priority: Medium Current Visit: Yes (2) Rhabdomyolysis SNOMED Code(s): 670413854 ICD Code: M62.82 - RHABDOMYOLYSIS Status: Acute Priority: Medium Current Visit: Yes Onset Date: ~06/04/17 Qualifiers: Rhabdomyolysis type: traumatic Encounter type: initial encounter Qualified Code(s): T79.6XXA - Traumatic ischemia of muscle, initial encounter (3) Dehydration SNOMED Code(s): 24442660 ICD Code: E86.0 - DEHYDRATION Status: Acute Priority: Medium Current Visit: Yes (4) Leukocytosis, unspecified SNOMED Code(s): 953503357, 047536995 ICD Code: D72.829 - ELEVATED WHITE BLOOD CELL COUNT, UNSPECIFIED Status: Resolved Priority: Medium Current Visit: Yes Onset Date: 06/04/17 Qualifiers: Leukocytosis type: unspecified Qualified Code(s): D72.829 - Elevated white blood cell count, unspecified - Patient Summary/Data Operative Procedure(s) Performed: None Consults: None Labs Pending at D/C: None Hospital Course: Patient did well during his observation stay. He remained afebrile and VSS. No issues with urination or BM's. No issues with pain. Patient did not have any seizures while admitted. - Patient Instructions Diet: Regular Diet as Tolerated Activity: No Strenuous Activities, Rest and Relax Today Driving: Do Not Drive Showering/Bathing: May Shower Notify Provider of: Fever, Increased Pain, Nausea and/or Vomiting - Discharge Plan Home Medications: Home Meds levETIRAcetam [Levetiracetam] 1,500 mg PO BID 06/04/17 [History] Patient Handouts: Epilepsy, Seizure, Adult - Discharge Summary/Plan Comment DC Time >30 min.: Yes Discharge Summary/Plan Comment: Patient will be discharged home today. Recommend lots of water to keep CK trending down. Continue with Keppra 1500mg BID. He needs an MRI and to establish primary care. Schedule appointment with Neurology as able. Recheck with PCP once established for left shoulder dislocation. - General Info Date of Service: 06/06/17 Subjective Update: Seizure Rhabdo Dehydration Functional Status: Reports: Pain Controlled, Tolerating Diet, Ambulating, Urinating Numeric/FACES Score: 0 - Review of Systems General: Denies: Fever, Weakness Pulmonary: Denies: Shortness of Breath, Sputum Cardiovascular: Denies: Chest Pain, Palpitations Gastrointestinal: Denies: Abdominal Pain, Nausea, Vomiting Musculoskeletal: Reports: Shoulder Pain (from dislocated) Skin: Reports: Bruising (left arm) Neurological: Denies: Dizziness, Headache, Numbness, Paresthesia, Tingling - Patient Data Vitals - Most Recent: Last Vital Signs Temp 36.9 C 06/06/17 09:57 Pulse 106 H 06/06/17 09:57 Resp 18 06/06/17 09:57 BP 124/78 06/06/17 09:57 Pulse Ox 97 06/06/17 09:57 Weight - Most Recent: 94.529 kg I&O - Last 24 hours: Intake & Output 06/05/17 06/06/17 06/06/17 22:59 06:59 14:59 Intake Total 5345 1824 360 Output Total 600 1750 Balance 1458 74 360 Lab Results - Last 24 hrs: Laboratory Results - last 24 hr 06/05/17 06/05/17 06/06/17 Range/Units 17:10 18:39 06:25 WBC (4.0-10.0) x10^3/uL RBC (4.5-6.0) x10^6/uL Hgb (14.0-18.0) g/dL Hct (40.0-52.0) % MCV (78.0-93.0) fL MCH (26.0-32.0) pg MCHC (32.0-36.0) g/dL RDW Coeff of [place] (10.0-15.0) % Plt Count (130-400) x10^3/uL Neut % (Auto) (50.0-80.0) % Lymph % (Auto) (25.0-50.0) % [place] % (Auto) (2.0-11.0) % Eos % (Auto) (0.0-4.0) % Baso % (Auto) (0.2-1.2) % Sodium (136-145) mmol/L Potassium (3.5-5.1) mmol/L Chloride (98-107) mmol/L Carbon Dioxide (21-32) mmol/L Anion Gap (10-20) mmol/L BUN (7-18) mg/dL Creatinine (0.70-1.30) mg/dL Est Cr Clr Drug Dosing mL/min Estimated GFR (MDRD) Glucose (74-106) mg/dL Lactic Acid 1.0 (0.4-2.0) mmol/L Calcium (8.5-10.1) mg/dL Magnesium (1.8-2.4) mg/dL Creatine Kinase 2824 H* (39-308) U/L Urine Opiates Screen Positive H (NEAGTIVE) Ur Buprenorphine Scrn Negative (NEGATIVE) Ur Oxycodone Screen Negative (NEGATIVE) Urine Methadone Screen Negative (NEGATIVE) Ur Barbiturates Screen Negative (NEGATIVE) Ur Tricyclics Screen Negative (NEGATIVE) Ur Amphetamine Screen Negative (NEGATIVE) U Methamphetamines Scrn Negative (NEGATIVE) Urine MDMA Screen Negative (NEGATIVE) U Benzodiazepines Scrn Negative (NEGATIVE) U Cocaine Metab Screen Negative (NEGATIVE) U Marijuana (THC) Screen Negative (NEGATIVE) 06/06/17 06/06/17 Range/Units 06:25 06:25 WBC 11.1 H (4.0-10.0) x10^3/uL RBC 3.70 L (4.5-6.0) x10^6/uL Hgb 11.7 L (14.0-18.0) g/dL Hct 34.4 L (40.0-52.0) % MCV 93.0 (78.0-93.0) fL MCH 31.6 (26.0-32.0) pg MCHC 34.0 (32.0-36.0) g/dL RDW Coeff of [place] 12.2 (10.0-15.0) % Plt Count 206 (130-400) x10^3/uL Neut % (Auto) 71.1 (50.0-80.0) % Lymph % (Auto) 19.3 L (25.0-50.0) % [place] % (Auto) 8.7 (2.0-11.0) % Eos % (Auto) 0.5 (0.0-4.0) % Baso % (Auto) 0.4 (0.2-1.2) % Sodium 140 (136-145) mmol/L Potassium 3.7 (3.5-5.1) mmol/L Chloride 105 (98-107) mmol/L Carbon Dioxide 25 (21-32) mmol/L Anion Gap 13.7 (10-20) mmol/L BUN 6 L (7-18) mg/dL Creatinine 0.9 (0.70-1.30) mg/dL Est Cr Clr Drug Dosing 119.69 mL/min Estimated GFR (MDRD) > 60 Glucose 112 H (74-106) mg/dL Lactic Acid (0.4-2.0) mmol/L Calcium 8.1 L (8.5-10.1) mg/dL Magnesium 1.5 L (1.8-2.4) mg/dL Creatine Kinase 1974 H* (39-308) U/L Urine Opiates Screen (NEAGTIVE) Ur Buprenorphine Scrn (NEGATIVE) Ur Oxycodone Screen (NEGATIVE) Urine Methadone Screen (NEGATIVE) Ur Barbiturates Screen (NEGATIVE) Ur Tricyclics Screen (NEGATIVE) Ur Amphetamine Screen (NEGATIVE) U Methamphetamines Scrn (NEGATIVE) Urine MDMA Screen (NEGATIVE) U Benzodiazepines Scrn (NEGATIVE) U Cocaine Metab Screen (NEGATIVE) U Marijuana (THC) Screen (NEGATIVE) RJ Results - Last 24 hrs: Microbiology 06/04/17 12:26 Aerobic Blood Culture - Preliminary Blood - Venous - Lab Draw NO GROWTH AFTER 1 DAY Anaerobic Blood Culture - Final 06/04/17 12:13 Aerobic Blood Culture - Preliminary Blood - Venous NO GROWTH AFTER 1 DAY Anaerobic Blood Culture - Final Med Orders - Current: Current Medications Hydrocodone Bitart/Acetaminophen ([place] 325-5 Mg) 1 tab PO Q4H PRN PRN Reason: Pain (moderate 4-6) Ceftriaxone Sodium (Rocephin) 2 gm IVPUSH DAILY@1200 SCOTT Last Admin: 06/05/17 11:48 Dose: 2 gm Azithromycin 500 mg/ Sodium (Chloride) 250 mls @ 250 mls/hr IV DAILY@1200 SCOTT Last Admin: 06/05/17 11:48 Dose: 250 mls/hr Sodium Chloride (Normal Saline) 1,000 mls @ 125 mls/hr IV [facility]RECTED [facility] Last Admin: 06/05/17 23:48 Dose: 125 mls/hr Ketorolac Tromethamine (Toradol) 15 mg IVPUSH Q6H PRN PRN Reason: Pain (moderate 4-6) Levetiracetam (Keppra) 1,500 mg PO BID [facility] Last Admin: 06/06/17 07:33 Dose: 1,500 mg Magnesium Oxide (Magnesium Oxide) 400 mg PO ONETIME ONE Stop: 06/06/17 10:38 Ondansetron HCl (Zofran Odt) 4 mg PO Q4H PRN PRN Reason: nausea, able to take PO Sodium Chloride (Saline Flush) 10 ml FLUSH ASDIRECTED PRN PRN Reason: Keep Vein Open Discontinued Medications Azithromycin (Zithromax) Confirm Administered Dose 500 mg .ROUTE .STK-MED ONE Stop: 06/04/17 13:34 Last Admin: 06/04/17 17:46 Dose: Not Given Ceftriaxone Sodium (Rocephin) 2 gm IVPUSH ONETIME ONE Stop: 06/04/17 11:47 Last Admin: 06/04/17 13:05 Dose: 2 gm Cyclobenzaprine HCl (Flexeril) 10 mg PO ONETIME ONE Stop: 06/04/17 11:26 Last Admin: 06/04/17 13:10 Dose: 10 mg Hydromorphone HCl (Dilaudid) 1 mg IVPUSH ONETIME ONE Stop: 06/04/17 12:50 Last Admin: 06/04/17 13:12 Dose: 1 mg Hydromorphone HCl (Dilaudid) 1 mg IVPUSH ONETIME ONE Stop: 06/04/17 14:05 Last Admin: 06/04/17 14:21 Dose: 1 mg Sodium Chloride (Normal Saline) 1,000 mls @ 999 mls/hr IV ONETIME ONE Stop: 06/04/17 11:11 Last Admin: 06/04/17 10:40 Dose: 999 mls/hr Azithromycin 500 mg/ Sodium (Chloride) 250 mls @ 250 mls/hr IV ONETIME ONE Stop: 06/04/17 12:45 Last Admin: 06/04/17 17:47 Dose: Not Given Sodium Chloride (Normal Saline) 1,000 mls @ 100 mls/hr IV ASDIRECTED [facility] Last Admin: 06/04/17 13:25 Dose: 100 mls/hr Azithromycin 500 mg/ Sodium (Chloride) 250 mls @ 250 mls/hr IV ONETIME ONE Stop: 06/04/17 14:54 Last Admin: 06/04/17 13:55 Dose: 250 mls/hr Lactated Ringer's (Ringers, Lactated) 1,000 mls @ 500 mls/hr IV ASDIRECTED [facility] Last Admin: 06/04/17 21:38 Dose: 500 mls/hr Lactated Ringer's (Ringers, Lactated) 1,000 mls @ 200 mls/hr IV ASDIRECTED [facility] Last Admin: 06/05/17 04:44 Dose: 200 mls/hr Sodium Chloride (Normal Saline) 1,000 mls @ 125 mls/hr IV .BOLUS ONE Stop: 06/05/17 19:03 Last Admin: 06/05/17 11:17 Dose: 125 mls/hr Sodium Chloride (Normal Saline) 2,000 mls @ 999 mls/hr IV ONETIME ONE Stop: 06/05/17 23:05 Last Admin: 06/05/17 22:38 Dose: 999 mls/hr Magnesium Sulfate 2 gm/ Premix 50 mls @ 25 mls/hr IV ONETIME ONE Stop: 06/06/17 12:21 Last Admin: 06/06/17 10:37 Dose: Not Given Ketorolac Tromethamine (Toradol) 15 mg IVPUSH ONETIME ONE Stop: 06/04/17 10:12 Last Admin: 06/04/17 11:26 Dose: 15 mg Levetiracetam (Keppra) 1,500 mg PO BID SCOTT Last Admin: 06/05/17 08:12 Dose: 1,500 mg Lorazepam (Ativan) 0.5 mg IVPUSH ONETIME ONE Stop: 06/04/17 12:51 Last Admin: 06/04/17 13:15 Dose: 0.5 mg Morphine Sulfate (Morphine) 4 mg IVPUSH ONETIME ONE Stop: 06/04/17 10:12 Last Admin: 06/04/17 10:45 Dose: 4 mg Morphine Sulfate (Morphine) 4 mg IV ONETIME ONE Stop: 06/04/17 11:01 Last Admin: 06/04/17 11:25 Dose: Not Given - Exam General: Reports: Alert, Oriented, Cooperative, No Acute Distress Lungs: Reports: Clear to Auscultation, Normal Respiratory Effort Cardiovascular: Reports: Regular Rate, Regular Rhythm GI/Abdominal Exam: Normal Bowel Sounds, Soft, Non-Tender Extremities: Normal Inspection Skin: Reports: Warm, Dry, Intact, Ecchymosis (left volar surface of the left arm ) Neurological: Reports: No New Focal Deficit, Normal Speech *Q Meaningful Use (DIS) - VTE *Q VTE Mechanical Contraindications *Q: At Risk for Falls
== END 2017-06-06 11:55 | disposition home or self-care (01) ==
LOC: VM.ED 09:54 → VM.MS 12:49
PROVIDERS: ADMIT Nurse Practitioner Family; ATTEND Nurse Practitioner Family
DX: T79.6XXA Traumatic ischemia of muscle, initial encounter (principal); G40.909 Epilepsy, unspecified, not intractable, without status epilepticus; E86.0 Dehydration; D72.829 Elevated white blood cell count, unspecified; Z79.899 Other long term (current) drug therapy; W18.12XA Fall from or off toilet with subsequent striking against object, initial encounter
CPT/HCPCS: 36415; 70450; 71046; 73020-LT; 73030-LT; 80048; 80053; 80305; 81001; 82550; 83605; 83735; 84484; 85025; 85610; 86140; 87040; 93005; 96361; 96365; 96375; 96376; 99285; A9270-GY; G0480; J0456; J0696; J1170; J1885; J2060; J2270; J7030; J7050; J7120

== ENCOUNTER 2017-06-07 09:38 | Emergency (ER) | payer BC ==
[2017-06-07] MEDS ORDERED: HYDROmorphone 1 MG/ML Syringe IVPUSH ONE (12:26)
[2017-06-07] MEDS ORDERED: Sodium Chloride 0.9% 10 ML Syringe FLUSH PRN (12:26)
[2017-06-07] MEDS ORDERED: LORazepam 2 MG/ML SDV IV ONE (12:26)
--- NOTE | 2017-06-07 21:57 | EDM.PDOC ---
ED HPI GENERAL MEDICAL PROBLEM - General Chief Complaint: Upper Extremity Injury/Pain Stated Complaint: SHOULDER Time Seen by Provider: 06/07/17 09:45 Source of Information: Reports: Patient History Limitations: Reports: No Limitations - History of Present Illness INITIAL COMMENTS - FREE TEXT/NARRATIVE: Pt. was brought over from the clinic with complaints of L shoulder dislocation. Pt. had been admitted to our facility following a seizure with subsequent fall and L shoulder dislocation. It was reduced and pt. was admitted for observation for further seizure activity and rhabdomyolysis. Shortly after initial reduction and shortly before discharge, the shoulder dislocated again, despite being in a sling. The pt. was discharged with a sling and informed to keep the sling on and instructed not to use the shoulder, as there is a high possibility it will dislocate again acutely. Pt., however, took a shower, washed his hair, and was doing exercises with the shoulder and it dislocated again. He presented to the clinic and was sent her for evaluation and treatment. Onset: Today Onset Date: 06/07/17 Onset Time: 08:00 Location: Reports: Upper Extremity, Left Quality: Reports: Ache, Throbbing Left Shoulder Pain Score (Numeric/FACES): 2 - Related Data Allergies Allergy/AdvReac Type Severity Reaction Status Date / Time No Known Allergies Allergy Verified 06/07/17 10:23 Home Meds: Home Meds levETIRAcetam [Levetiracetam] 1,500 mg PO BID 06/04/17 [History] Past Medical History HEENT History: Reports: Impaired Vision Cardiovascular History: Reports: None Neurological History: Reports: Seizure - Infectious Disease History Infectious Disease History: Reports: Chicken Pox - Past Surgical History HEENT Surgical History: Reports: Oral Surgery Other HEENT Surgeries/Procedures: [place] teeth removed Cardiovascular Surgical History: Reports: None Neurological Surgical History: Reports: None Social & Family History - Family History Family Medical History: Noncontributory - Tobacco Use Smoking Status *Q: Never Smoker Second Hand Smoke Exposure: No - Caffeine Use Caffeine Use: Reports: None - Recreational Drug Use Recreational Drug Use: No Review of Systems - Review of Systems Review Of Systems: See Below Constitutional: Reports: No Symptoms Eyes: Reports: No Symptoms Ears: Reports: No Symptoms Nose: Reports: No Symptoms Mouth/Throat: Reports: No Symptoms Respiratory: Reports: No Symptoms Cardiovascular: Reports: No Symptoms GI/Abdominal: Reports: No Symptoms Genitourinary: Reports: No Symptoms Musculoskeletal: Reports: Other (see HPI) Skin: Reports: No Symptoms Neurological: Reports: No Symptoms Psychiatric: Reports: No Symptoms ED EXAM, GENERAL - Physical Exam Exam: See Below Exam Limited By: No Limitations General Appearance: Alert, WD/WN, No Apparent Distress Nose: Normal Inspection, Normal Mucosa, No Blood Throat/Mouth: Normal Inspection, Normal Lips, Normal Teeth, Normal Gums, Normal Oropharynx, Normal Voice, No Airway Compromise Head: Atraumatic, Normocephalic Neck: Normal Inspection, Supple, Non-Tender, Full Range of Motion Respiratory/Chest: No Respiratory Distress, Lungs Clear, Normal Breath Sounds, No Accessory Muscle Use, Chest Non-Tender Cardiovascular: Normal Peripheral Pulses, Regular Rate, Rhythm, No Edema, No Gallop, No JVD, No Murmur, No Rub Peripheral Pulses: 3+: Radial (L), Radial (R) GI/Abdominal: Normal Bowel Sounds, Soft, Non-Tender, No Organomegaly, No Distention, No Abnormal Bruit, No Mass (Male) Exam: Deferred Rectal (Males) Exam: Deferred Back Exam: Normal Inspection, Full Range of Motion, NT Extremities: Normal Capillary Refill, Other (evidence of L shoulder dislocation clinically and radiologically) Neurological: Alert, Oriented, CN II-XII Intact, Normal Cognition, Normal Gait, Normal Reflexes, No Motor/Sensory Deficits Psychiatric: Normal Affect, Normal Mood Skin Exam: Warm, Dry, Intact, Normal Color, No Rash Lymphatic: No Adenopathy ED TRAUMA EXTREMITY PROCEDURES - Joint Reduction Site: Shoulder (L) Sedation: Other (Not a full conscious sedation. Pt. was given 1 mg of dilaudid and 1 mg of ativan IV for pain control and muscle relaxation.) Pre-Procedure NV Status: Normal Post-Procedure NV Status: Normal Number of Attempts: Other: (3) Joint Reduction Complication Description: Kaylynn method was utilized with scapular tip manipulation initially. When pt. was moved to get his post reduction radiographs, the shoulder dislocated again. The external rotation was then performed, but quickly dislocated again. [facility] was contacted, regarding inability of the shoulder to stay reduced. They stated that they would not be able to see him today and advised he go to [place]. I contacted [facility] who had me speak with ER, as the pt. would not have any open reduction of the shoulder today by orthopedics. I spoke with Dr. Durham who advised reducing it and securing it with KEVIN wraps. I did reduce it again using the kaylynn method, but it popped out immediately after the pt. arm relaxed. When the shoulder reduces, there is a very mild sensation of reduction, as if the muscles of the shoulder are very stretched. Decision was made to transfer pt. for definitive care of the shoulder. Course - Vital Signs Last Recorded V/S: Last Vital Signs Temp 36.1 C 06/07/17 09:38 Pulse 95 06/07/17 17:08 Resp 15 06/07/17 17:08 BP 135/93 H 06/07/17 17:08 Pulse Ox 100 06/07/17 17:08 - Orders/Labs/Meds Orders: Active Orders 24 hr Category Date Time Status Shoulder 1V Lt [CR] Stat Exams 06/07/17 13:05 Taken Shoulder 1V Lt [CR] Stat Exams 06/07/17 13:21 Taken Shoulder 1V Lt [CR] Stat Exams 06/07/17 16:01 Taken Shoulder Comp Lt [CR] Stat Exams 06/07/17 11:19 Taken Shoulder Comp Lt [CR] Stat Exams 06/07/17 13:54 Taken Peripheral IV Insertion Adult [OM.PC] Routine Oth 06/07/17 12:26 Ordered Meds: Medications Discontinued Medications Generic Name Dose Route Start Last Admin Trade Name Freq PRN Reason Stop Dose Admin Hydromorphone HCl 1 mg 06/07/17 12:26 06/07/17 12:41 Dilaudid IVPUSH 06/07/17 12:27 1 mg ONETIME ONE Administration Lorazepam 1 mg 06/07/17 12:26 06/07/17 12:43 Ativan IV 06/07/17 12:27 1 mg ONETIME ONE Administration Sodium Chloride 10 ml 06/07/17 12:26 Saline Flush FLUSH ASDIRECTED PRN Keep Vein Open Departure - Departure Time of Disposition: 17:34 Disposition: DC/Tfer to Acute Hospital 02 Clinical Impression: Shoulder dislocation, recurrent - Discharge Information Instructions: Recurrent Shoulder Laxity and Instability Referrals: PCP,None [Primary Care Provider] - Forms: ED Department Discharge Additional Instructions: Travel to [facility] for shoulder reduction (the new facility [place] [address]) Do no eat or drink, as you will need to be on an empty stomach for the reduction. - My Orders Last 24 Hours: My Active Orders 06/07/17 11:19 Shoulder Comp Lt [CR] Stat 06/07/17 12:26 Peripheral IV Insertion Adult [OM.PC] Routine 06/07/17 13:05 Shoulder 1V Lt [CR] Stat 06/07/17 13:21 Shoulder 1V Lt [CR] Stat 06/07/17 13:54 Shoulder Comp Lt [CR] Stat 06/07/17 16:01 Shoulder 1V Lt [CR] Stat - Assessment/Plan Last 24 Hours: My Active Orders 06/07/17 11:19 Shoulder Comp Lt [CR] Stat 06/07/17 12:26 Peripheral IV Insertion Adult [OM.PC] Routine 06/07/17 13:05 Shoulder 1V Lt [CR] Stat 06/07/17 13:21 Shoulder 1V Lt [CR] Stat 06/07/17 13:54 Shoulder Comp Lt [CR] Stat 06/07/17 16:01 Shoulder 1V Lt [CR] Stat
== END 2017-06-07 17:34 | disposition short-term general hospital (02) ==
LOC: VM.ED 09:38
DX: M24.412 Recurrent dislocation, left shoulder (principal)
CPT/HCPCS: 23650; 73020; 73030; 96374; 96375; 99284; J1170; J2060

== ENCOUNTER 2018-02-27 20:39 | Emergency (ER) | payer BC ==
[2018-02-27] MEDS ORDERED: HYDROmorphone 1 MG/ML Syringe IVPUSH ONE (21:08)
[2018-02-27] MEDS ORDERED: Sodium Chloride 0.9% 10 ML Syringe FLUSH PRN (21:08)
[2018-02-27] MEDS ORDERED: LORazepam 2 MG/ML SDV IVPUSH ONE ×2 (21:31→21:50)
[2018-02-27 21:50] LABS: CHLORIDE,CL 103 mmol/L (98-107); SODIUM,NA 141 mmol/L (136-145)
[2018-02-27 21:51] LABS: ANION GAP 14.8 mmol/L (10-20)
--- NOTE | 2018-02-27 22:46 | EDM.PDOC ---
ED HPI GENERAL MEDICAL PROBLEM - General Time Seen by Provider: 02/27/18 20:39 Source of Information: Reports: Patient History Limitations: Reports: No Limitations - History of Present Illness INITIAL COMMENTS - FREE TEXT/NARRATIVE: Pt. presents to ER with complaints of L shoulder dislocation. Pt. states that he dislocated his L shoulder today during a seizure. Pt. has had issues with this in the past. He was seen in out ER in May and was subsequently transferred to [facility] in [place] with inability to reduce the shoulder. Pt. did PT and has not had an MRI, but the shoulder does show a bankart and hill-sachs lesion. He stated to Dr. Plascencia (Orthopedics) that he does not want to have surgery. Pt. states that the presentation was similar this evening. The seizure was unwitnessed. He was using the toilet and did not fall off during the seizure. Denies striking his head. No chest pain or shortness of breath following the event. He states that he is on Keppra for seizure and states that he has not had follow -up for the seizures in approx. 1 year. Onset: Today Onset Date: 02/27/18 Location: Reports: Generalized Quality: Reports: Ache Severity: Moderate - Related Data Allergies Allergy/AdvReac Type Severity Reaction Status Date / Time No Known Allergies Allergy Verified 06/07/17 10:23 Home Meds: Home Meds levETIRAcetam [Levetiracetam] 1,500 mg PO BID 06/04/17 [History] Past Medical History HEENT History: Reports: Impaired Vision Cardiovascular History: Reports: None Neurological History: Reports: Seizure - Infectious Disease History Infectious Disease History: Reports: Chicken Pox - Past Surgical History HEENT Surgical History: Reports: Oral Surgery Other HEENT Surgeries/Procedures: [place] teeth removed Cardiovascular Surgical History: Reports: None Neurological Surgical History: Reports: None Social & Family History - Family History Family Medical History: Noncontributory - Caffeine Use Caffeine Use: Reports: None ED ROS GENERAL - Review of Systems Review Of Systems: See Below Constitutional: Reports: No Symptoms HEENT: Reports: No Symptoms Respiratory: Reports: No Symptoms Cardiovascular: Reports: No Symptoms Endocrine: Reports: No Symptoms GI/Abdominal: Reports: No Symptoms : Reports: No Symptoms Musculoskeletal: Reports: Shoulder Pain Skin: Reports: No Symptoms Neurological: Reports: Seizure Psychiatric: Reports: No Symptoms Hematologic/Lymphatic: Reports: No Symptoms Immunologic: Reports: No Symptoms ED EXAM, GENERAL - Physical Exam Exam: See Below Exam Limited By: No Limitations General Appearance: Alert, WD/WN, No Apparent Distress Eye Exam: Bilateral Eye: EOMI, PERRL Throat/Mouth: Normal Inspection, Normal Lips, Normal Teeth, Normal Gums, Normal Oropharynx, Normal Voice, No Airway Compromise Head: Atraumatic, Normocephalic Neck: Normal Inspection, Supple, Non-Tender, Full Range of Motion Respiratory/Chest: No Respiratory Distress, Lungs Clear, Normal Breath Sounds, No Accessory Muscle Use, Chest Non-Tender Cardiovascular: Normal Peripheral Pulses, Regular Rate, Rhythm, No Edema, No Gallop, No JVD, No Murmur, No Rub Peripheral Pulses: 4+: Radial (L), Radial (R) GI/Abdominal: Normal Bowel Sounds, Soft, Non-Tender, No Organomegaly, No Distention, No Abnormal Bruit, No Mass (Male) Exam: Deferred Rectal (Males) Exam: Deferred Back Exam: Normal Inspection, Full Range of Motion, NT Extremities: Normal Inspection, Normal Range of Motion, Normal Capillary Refill , Arm Pain (pain in L shoulder with manipulation), Limited Range of Motion Neurological: Alert, Oriented, CN II-XII Intact, Normal Cognition Psychiatric: Normal Affect, Normal Mood ED GENERAL MEDICAL PROCEDURES - Joint Reduction Site: Shoulder (L) Sedation: Conscious Sedation Technique: Other (kaylynn, external rotation and Milch method of reduction attempted. It did feel like the shoulder reduced in all of those attempts but there was persistent dislocation in the post reduction films.) Course - Orders/Labs/Meds Orders: Active Orders 24 hr Category Date Time Status Shoulder Comp Lt [CR] Stat Exams 02/27/18 21:00 Taken Shoulder Comp Lt [CR] Stat Exams 02/27/18 21:42 Taken LEVETIRACETAM, S [REF] Stat Lab 02/27/18 21:15 Received Sodium Chloride 0.9% [Saline Flush] Med 02/27/18 21:08 Active 10 ml FLUSH ASDIRECTED PRN Peripheral IV Insertion Adult [OM.PC] Routine Oth 02/27/18 21:08 Ordered Medication Orders Sodium Chloride (Saline Flush) 10 ml FLUSH ASDIRECTED PRN PRN Reason: Keep Vein Open Labs: Laboratory Tests 02/27/18 02/27/18 Range/Units 21:15 21:15 WBC 19.6 H (4.0-10.0) x10^3/uL RBC 4.80 (4.5-6.0) x10^6/uL Hgb 15.0 D (14.0-18.0) g/dL Hct 43.5 (40.0-52.0) % MCV 90.6 (78.0-93.0) fL MCH 31.3 (26.0-32.0) pg MCHC 34.5 (32.0-36.0) g/dL RDW Coeff of Curry 12.4 (10.0-15.0) % Plt Count 289 D (130-400) x10^3/uL Neut % (Auto) 85.6 H (50.0-80.0) % Lymph % (Auto) 8.5 L (25.0-50.0) % Johnson % (Auto) 5.1 (2.0-11.0) % Eos % (Auto) 0.6 (0.0-4.0) % Baso % (Auto) 0.2 (0.2-1.2) % Sodium 141 (136-145) mmol/L Potassium 3.8 (3.5-5.1) mmol/L Chloride 103 (98-107) mmol/L Carbon Dioxide 27 (21-32) mmol/L Anion Gap 14.8 (10-20) mmol/L BUN 12 (7-18) mg/dL Creatinine 1.4 H (0.70-1.30) mg/dL Est Cr Clr Drug Dosing TNP Estimated GFR (MDRD) 57 Glucose 140 H (74-106) mg/dL Calcium 9.5 (8.5-10.1) mg/dL Corrected Calcium 9.18 (8.5-10.1) mg/dL Total Bilirubin 0.3 (0.2-1.0) mg/dL AST 10 L (15-37) U/L ALT 28 (16-63) U/L Alkaline Phosphatase 72 (46-116) U/L Total Protein 8.0 (6.4-8.2) g/dL Albumin 4.4 (3.4-5.0) g/dL Globulin 3.6 Albumin/Globulin Ratio 1.22 TSH, Ultra Sensitive 1.130 (0.358-3.74) uIU/mL Meds: Medications Generic Name Dose Route Start Last Admin Trade Name Freq PRN Reason Stop Dose Admin Sodium Chloride 10 ml 02/27/18 21:08 Saline Flush FLUSH ASDIRECTED PRN Keep Vein Open Discontinued Medications Generic Name Dose Route Start Last Admin Trade Name Freq PRN Reason Stop Dose Admin Hydromorphone HCl 1 mg 02/27/18 21:08 Dilaudid IVPUSH 02/27/18 21:09 ONETIME ONE Lorazepam 1 mg 02/27/18 21:31 Ativan IVPUSH 02/27/18 21:32 ONETIME ONE - Radiology Interpretation Free Text/Narrative:: anterior shoulder dislocation Departure - Departure Time of Disposition: 10:53 Disposition: DC/Tfer to [facility] 02 Clinical Impression: Shoulder dislocation, recurrent, Seizure disorder - Discharge Information Instructions: Recurrent Shoulder Laxity and Instability, Epilepsy, [id number] Referrals: PCP,None [Primary Care Provider] - Forms: Interfacility Transfer EMTALA - My Orders Last 24 Hours: My Active Orders 02/27/18 21:00 Shoulder Comp Lt [CR] Stat 02/27/18 21:08 Sodium Chloride 0.9% [Saline Flush] 10 ml FLUSH ASDIRECTED PRN Peripheral IV Insertion Adult [OM.PC] Routine 02/27/18 21:15 LEVETIRACETAM, S [REF] Stat 02/27/18 21:42 Shoulder Comp Lt [CR] Stat - Assessment/Plan Last 24 Hours: My Active Orders 02/27/18 21:00 Shoulder Comp Lt [CR] Stat 02/27/18 21:08 Sodium Chloride 0.9% [Saline Flush] 10 ml FLUSH ASDIRECTED PRN Peripheral IV Insertion Adult [OM.PC] Routine 02/27/18 21:15 LEVETIRACETAM, S [REF] Stat 02/27/18 21:42 Shoulder Comp Lt [CR] Stat Plan: Pt. will be transported via POV to [facility] for reduction of the shoulder. We do not have anesthesia staff and just once nurse in ER and he will need conscious sedation to definitively manage this dislocation. He will be transported via private vehicle. All questions were answered.
--- NOTE | 2018-02-28 09:00 | CR ---
[id number] RAD/RAD Shoulder Left 2V Min EXAM: LEFT SHOULDER 3 VIEWS INDICATION: POSSIBLE DISLOCATED SHOULDER. COMPARISON: June 07, 2017. DISCUSSION: Recurrent anterior dislocation of the shoulder. No fracture or other osseous abnormality is identified on this single view. IMPRESSION: 1. Anterior shoulder dislocation. Lui Paris MD 02/28/18 0858 Thank you for allowing us to participate in the care of your patient.
--- NOTE | 2018-02-28 09:01 | CR ---
[id number] RAD/RAD Shoulder Left 2V Min EXAM: LEFT SHOULDER 2 VIEWS INDICATION: POST REDUCTION. COMPARISON: Earlier same date. DISCUSSION: Sequential AP radiographs performed of the left shoulder after attempted reduction. There is persistent anterior dislocation of the shoulder. IMPRESSION: 1. Persistent anterior shoulder dislocation. Lui Paris MD 02/28/18 0859 Thank you for allowing us to participate in the care of your patient.
== END 2018-02-27 23:31 | disposition short-term general hospital (02) ==
LOC: VM.ED 20:39
DX: S43.005A Unspecified dislocation of left shoulder joint, initial encounter (principal); G40.909 Epilepsy, unspecified, not intractable, without status epilepticus; X58.XXXA Exposure to other specified factors, initial encounter
CPT/HCPCS: 36415; 73030; 80053; 80177; 84443; 85025; 96374; 96375; 99152; 99285; J1170; J2060

== ENCOUNTER 2018-03-12 17:58 | Emergency (ER) | payer BC ==
--- NOTE | 2018-03-12 18:51 | EDM.PDOC ---
ED HPI GENERAL MEDICAL PROBLEM - General Chief Complaint: Upper Extremity Injury/Pain Stated Complaint: Left shoulder pain/injury Time Seen by Provider: 03/12/18 18:00 Source of Information: Reports: Patient, Old Records, RN, RN Notes Reviewed History Limitations: Reports: No Limitations - History of Present Illness INITIAL COMMENTS - FREE TEXT/NARRATIVE: Patient presents to the ED at [facility] for the evaluation of left shoulder pain. Patient states he was doing home physical therapy when he thinks he may be dislocated his shoulder again. Patient was seen in this ER a couple of weeks ago for a dislocated shoulder 2/2 seizure. He has been seen by Ortho and physical therapy over the past couple of weeks. Mr. Verma 36-year-old male who last saw Dr. Nickerson, Neuro 03/11/15 for tonic clonic seizures.EEGs from 02/15/1998 and 1999 showed generalized epileptiform activity. Patient has tried Depakote, which caused a rash and Trileptal which caused cramps in the past. Patient had been seizure free for over 3 years on Keppra 1000 mg BID until 02/21/16. Patient reports he was at home watching TV with his parents and had a seizure.Patient did lose consciousness and bit his tongue. No bowel or bladder incontinence. He is compliant with his medications. Keppra level on 02/23/16 was 27.8, which is therapeutic. Patient had another seizure on 01/15/17.This would be his 9th generalized tonic-clonic seizure in his life.Keppra level on 01/26/17 was 26.8. He denies any lifestyle changes, and is compliant with medications. He denies any side effects from Keppra. Dosage was increased to 1500mg BID. Patient had another seizure on Sunday, June 04. Patient woke up that morning and took his keppra as usual. He was getting ready to take a shower and then next thing he knew he woke up on the floor. He had multiple bruises throughout and painful left shoulder. Patient went to ER in [place]. He thinks he had a CT scan to rule out ICH. His left shoulder was dislocated and was reset @ [facility]. He denies any lifestyle changes or triggers. He is consistent with his medication and denies missing a dose. Keppra increased to 2000mg BID. Repeat EEG - normal. Seen in Oct 2017 and remained seizure free. Patient had an MRI of his Left Shoulder yesterday. 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 Mild rotator cuff tendinopathy with small focal area of low-grade infraspinous tearing. Onset: Today Onset Date: 03/12/18 Left Shoulder Pain Score (Numeric/FACES): 8 Left Upper Arm Pain Score (Numeric/FACES): 8 - Related Data Allergies Allergy/AdvReac Type Severity Reaction Status Date / Time No Known Allergies Allergy Verified 03/12/18 19:11 Home Meds: Home Meds levETIRAcetam [Levetiracetam] 2,000 mg PO BID 02/27/18 [History] Past Medical History HEENT History: Reports: Impaired Vision Cardiovascular History: Reports: None Musculoskeletal History: Reports: Other (See Below) Other Musculoskeletal History: Dislocation of left shoulder Neurological History: Reports: Seizure - Infectious Disease History Infectious Disease History: Reports: Chicken Pox - Past Surgical History HEENT Surgical History: Reports: Oral Surgery Other HEENT Surgeries/Procedures: [place] teeth removed Cardiovascular Surgical History: Reports: None Neurological Surgical History: Reports: None Social & Family History - Family History Family Medical History: Noncontributory - Caffeine Use Caffeine Use: Reports: None Review of Systems - Review of Systems Review Of Systems: ROS reveals no pertinent complaints other than HPI. ED EXAM, GENERAL - Physical Exam Exam: See Below Exam Limited By: No Limitations General Appearance: Alert, No Apparent Distress Head: Atraumatic, Normocephalic Respiratory/Chest: No Respiratory Distress, Lungs Clear, Normal Breath Sounds Cardiovascular: Normal Peripheral Pulses, Regular Rate, Rhythm Peripheral Pulses: 2+: Radial (L), Radial (R) Extremities: Arm Pain, Limited Range of Motion (dislocation of left shoulder). No: Joint Swelling Neurological: Alert, Oriented Skin Exam: Warm, Dry, Intact, Normal Color Course - Vital Signs Last Recorded V/S: Last Vital Signs Temp 36.7 C 03/12/18 19:03 Pulse 86 03/12/18 19:03 Resp 16 03/12/18 19:03 BP 142/83 H 03/12/18 19:03 Pulse Ox 98 03/12/18 19:03 - Radiology Interpretation Free Text/Narrative:: Left Shoulder: Anterior glenohumeral shoulder dislocation See scanned report in EMR for details Departure - Departure Time of Disposition: 20:10 Disposition: DC/Tfer to Acute Hospital 02 Condition: Good Clinical Impression: Dislocation, shoulder, anterior Qualifiers: Encounter type: initial encounter Laterality: left Qualified Code(s): S43.015A - Anterior dislocation of left humerus, initial encounter - Discharge Information *PRESCRIPTION DRUG MONITORING PROGRAM REVIEWED*: Not Applicable *COPY OF PRESCRIPTION DRUG MONITORING REPORT IN PATIENT LEONIDES: Not Applicable Instructions: Shoulder Dislocation Forms: Interfacility Transfer EMTALA - Problem List Review Problem List Initiated/Reviewed/Updated: Yes - Assessment/Plan Assessment:: Left Anterior shoulder dislocation Plan: Case discussed with Dr. Yan, [facility] ED. Patient would like to have his shoulder reduced in the ER at [facility]. Patient accepted and will travel via POV. Patient report given to Dr. Yan. Patient is currently denying any pain.
--- NOTE | 2018-03-12 19:23 | CR ---
[id number] RAD/RAD Shoulder Left 2V Min Exam: RAD Shoulder Left 2V Min Indication:PAIN Comparison: Multiple priors, most recent is an MRI from March 11, 2018. Discussion: Humeral head is anteriorly dislocated in relation to the glenoid. Similar findings are seen on a prior radiograph from February 27, 2018. MRI from February 19, 2018 demonstrated the sequela of dislocation, described in detail on that examination. Impression: Anterior glenohumeral shoulder dislocation. Tylor Knox MD 03/12/18 [id number] Thank you for allowing us to participate in the care of your patient.
== END 2018-03-12 21:10 | disposition short-term general hospital (02) ==
LOC: VM.ED 17:58
DX: S43.015A Anterior dislocation of left humerus, initial encounter (principal); X58.XXXA Exposure to other specified factors, initial encounter
CPT/HCPCS: 73030-LT; 99283